=== PATIENT | male | born 1995 | race Caucasian/White ===

== ENCOUNTER 2023-08-25 21:42 | Emergency (ER) | payer MEDICAID ==
[~2023-08-25] VITALS: Ht 185.4 cm; Wt 102.1 kg
[2023-08-25 21:57] VITALS: BP 144/91; TEMP 98; O2SAT 98
[2023-08-25] MEDS ORDERED: PANT40TA2 PO (23:00)
[2023-08-25] MEDS ORDERED: MAG HYDROX/AL HYDROX/SIMETH 30 ML UDC ONE (23:26)
[2023-08-25] MEDS ORDERED: LIDOCAINE VISCOUS 2% UD 15 ML UDC ONE (23:27)
[2023-08-25] MEDS: LIDOCAINE VISCOUS 2% UD 15 ML UDC MM ONE (23:29)
[2023-08-25] MEDS: MAG HYDROX/AL HYDROX/SIMETH 30 ML UDC PO ONE (23:29)
== END 2023-08-25 23:31 | disposition home or self-care (01) ==
LOC: ER 21:50
DX: K21.9 Gastro-esophageal reflux disease without esophagitis (principal); R09.A2 Foreign body sensation, throat; M54.2 Cervicalgia
CPT/HCPCS: 70490-TC

== ENCOUNTER → 2024-10-18 | Emergency (ER) | payer MEDICAID, OTHER ==
[~2024-10-18] VITALS: Ht 185.4 cm; Wt 108.9 kg
[~2024-10-18] MED LIST: LANS30CA56 PO; LIDOCAINE VISCOUS 2% UD 15 ML UDC ONE; MAG HYDROX/AL HYDROX/SIMETH 30 ML UDC ONE; PANT40TA2 PO
[2024-10-18 17:20] VITALS: BP 136/95; TEMP 97.9; O2SAT 99
[2024-10-18] MEDS: MAG HYDROX/AL HYDROX/SIMETH 30 ML UDC PO ONE (17:54)
[2024-10-18] MEDS: LIDOCAINE VISCOUS 2% UD 15 ML UDC MM ONE (17:54)
== END | disposition home or self-care (01) ==
LOC: ER 17:18
DX: K21.9 Gastro-esophageal reflux disease without esophagitis (principal); Z79.899 Other long term (current) drug therapy